=== PATIENT | female | born 1935 | race Caucasian/White ===

== ENCOUNTER 2020-01-26 07:07 | Inpatient (IN) | payer MEDICARE, SELFPAY ==
[2020-01-26] MEDS ORDERED: Ondansetron PF 4 MG/2 ML Vial ONE (07:54)
[2020-01-26] MEDS ORDERED: Morphine 4 MG/ML VIAL ONE (07:54)
[2020-01-26 08:05] LABS: #Eosinphils 0.9 thou/uL (0.0-0.7); #Monocytes 0.8 thou/uL (0.11-0.59); #Neutrophils 4.6 thou/uL (1.40-6.50); %Basophils 0.5 % (0.0-1.0); %Eosinophils 10.4 % (0.0-10.0); %Lymphocytes 24.1 % (21.0-51.0); %Monocytes 9.7 % (0.0-10.0); %Neutrophils 55.3 % (42.0-75.0); Hemoglobin 10.5 g/dL (12.0-16.0); Mean Corpuscular Hemoglobin 34.6 pg (27.0-31.0); Mean Platelet Volume 7.9 fL (7.4-10.4); Platelet Count 259 thou/uL (130-400); Red Blood Cell (RBC) Count 3.05 mill/uL (4.20-5.40); White Blood Cell (WBC) Count 8.3 thou/uL (4.8-10.8)
--- NOTE | 2020-01-26 08:09 | RAD ---
XR Chest 1 View Portable History: Chest pain Comparison: None. Findings: Left upper quadrant surgical clips of the abdomen. Dual-lead pacer electrode tips project o varun the right atrium and right ventricle. Prominent right hemithorax skinfold. No confluent airspace consolidation, pneumothorax or effusion. Left cardiophrenic fat pad. Mild cardiomegaly. Calcification projects over the right axilla. Impression: Chronic findings. No acute intrathoracic abnormality.
[2020-01-26 08:22] LABS: ALT (SGPT) 97 U/L (8-55); AST (SGOT) 109 U/L (5-34); Albumin 3.6 g/dL (3.4-4.8); Alkaline Phosphatase 190 U/L (40-110); Anion Gap 16 mmol/L (10-20); BUN (Urea Nitrogen) 19 mg/dL (9.8-20.1); Bilirubin, Total 0.5 mg/dL (0.2-1.2); Calc. Creatinine Clearance 0 mL/min (70-130); Calcium 8.2 mg/dL (7.8-10.44); Carbon Dioxide 19 mmol/L (23-31); Chloride 107 mmol/L (98-107); Globulin 3.2 g/dL (2.4-3.5); Glucose 87 mg/dL (83-110); Lipase 26 U/L (8-78); Potassium 4.2 mmol/L (3.5-5.1); Protein, Total 6.8 g/dL (6.0-8.3); Sodium 138 mmol/L (136-145)
[2020-01-26] MEDS ORDERED: Iopamidol-370 76% 500 ML 1 ML ONE (09:02)
[2020-01-26] MEDS ORDERED: Fentanyl 100 MCG/2 ML VIAL ONE (09:30)
--- NOTE | 2020-01-26 10:04 | CT ---
CT OF CHEST AND ABDOMEN AND PELVIS AND THORACIC AND LUMBAR SPINE PERFORMED WITH CONTRAST ENHANCEMENT: HISTORY: The patient fell in the middle of the night landing on toilet with full weight. Diffuse pain. COMPARISON: None available. FINDINGS: The lungs show some chronic-appearing change. There is no infiltrative process or evidence of pneumo thorax or pleural effusion. There is subtle deformity to the left posterolateral 11th rib which appe ars to represent a nondisplaced fracture. It is difficult to show any other definitive fractures. The thoracic aorta shows mildly aneurysmal appearance to the descending thoracic aorta which measures in the 3.6 cm range. No mediastinal hematoma. CT OF ABDOMEN PERFORMED WITH CONTRAST ENHANCEMENT: The liver and spleen show no focal abnormalities. The pancreas is atrophic. The gallbladder is mild ly distended. The right adrenal gland is normal. Severe cortical scarring involving the right kidney. No signs of any injury to either kidney. No signs of any bowel injury or free fluid. Atherosclerotic change of the aorta is present. The more proximal aorta measures in the 3.2 cm range. The infrarenal aorta i s ectatic but not aneurysmal. CT OF PELVIS PERFORMED WITH CONTRAST ENHANCEMENT: No adenopathy, mass, or free fluid. No evidence of any fracture of the bony pelvic ring. CT OF THORACIC SPINE: Kyphotic deformity to the spine is noted. I do not see any definite signs of an acute compression in jury. CT OF LUMBAR SPINE PERFORMED WITH CONTRAST ENHANCEMENT: Postoperative changes of the spine are seen. No acute findings. IMPRESSION: 1. Left posterior 11th and 12th rib fractures. Equivocal findings at the level of the posterior lef t 9th and 10th ribs. 2. Postoperative changes in the region of the stomach and post cholecystectomy change. 3. 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 4. Severe cortical scarring involving the right kidney. Atrophic-appearing pancreas. POS: Blake
[2020-01-26 11:22] LABS: Bilirubin Negative (Negative); Blood, Urine 3+ (Negative); Clarity Clear (Clear); Glucose, Urine (Dipstick) Normal (Negative); Ketone, Urine Negative (Negative); Leukocyte 250 Leu/uL (Negative); Nitrite Negative (Negative); Protein, Urine (Dipstick) 20 mg/dL (Neg-Trace); Squamous Epithelial 0-3 HPF (0-3); Transitional Epithelial 0-3 HPF (None Seen); Urobilinogen Normal mg/dL (Less than 2)
[2020-01-26 11:27] LABS: Magnesium 2.1 mg/dL (1.6-2.6); Phosphorus 3.9 mg/dL (2.3-4.7)
[2020-01-26 11:36] LABS: Specific Gravity, Urine Greater than 1.060 (1.002-1.036)
[2020-01-26 11:37] LABS: Bacteria/HPF 1+ HPF (None Seen); RBC/HPF 21-50 HPF (0-3)
[2020-01-26] MEDS ORDERED: Ondansetron PF 4 MG/2 ML Vial IVP PRN (11:45)
[2020-01-26] MEDS ORDERED: Dextrose 50% Abboject 50 ML SYRINGE SLOW IVP PRN (11:45)
[2020-01-26] MEDS ORDERED: Dextrose 5% in Water 1,000 ML IV PRN (11:45)
[2020-01-26] MEDS ORDERED: hydrALAZINE 20 MG/ML VIAL SLOW IVP PRN (11:45)
[2020-01-26] MEDS ORDERED: traMADol HCl 50 MG TAB PO PRN (11:47)
[2020-01-26] MEDS ORDERED: Ciprofloxacin 500 MG TAB PO SCH (12:00)
[2020-01-26] MEDS: Acetaminophen 325 MG TAB PO SCH ×3 (12:56→23:45)
[2020-01-26] MEDS: Ibuprofen 600 MG TAB PO SCH ×2 (12:57→21:27)
--- NOTE | 2020-01-26 14:58 | HP ---
TRAUMA SURGEON: Dr. Mayer. CONSULTING PHYSICIAN: None. HISTORY OF PRESENT ILLNESS: The patient is an 84-year-old female, who presents to the emergency department after she had a mechanical fall in her motel room. The patient reports that she slipped and fell in the bathroom, hitting her left posterior chest on the bathtub sidewall when she fell. She denies loss of consciousness, syncope, or anticoagulation use. She reports after she fell, she got up and went back to sleep, but woke up in the morning with more significant pain. She denies shortness of breath, chest pain, abdominal pain, nausea, vomiting, or diarrhea. She denies cough as well. PAST MEDICAL HISTORY: COPD, [place] x2, breast cancer, pacemaker, hiatal hernia, hypertension, cardiac stents x2. PAST SURGICAL HISTORY: Right-sided mastectomy, back surgeries x2, previous hiatal hernia repair. ALLERGIES: PENICILLIN, SULFA DRUGS, AND TETRACYCLINE. MEDICATIONS: The patient reports she takes nebs and Cymbalta. She takes additional medications, but she cannot remember them. Her family is to bring her medications and nursing will update the med rec. SOCIAL HISTORY: The patient is retired. She lives at home with her family. She does not use any walkers or assistive devices to get around. She denies tobacco use, but states that her was a heavy smoker. Denies drug or alcohol use. PHYSICAL EXAMINATION: VITAL SIGNS: Temperature 98.8, pulse 62, respirations 20, oxygen saturation 98% on 2 L nasal cannula, and blood pressure 159/66. PRIMARY SURVEY: Airway intact. Adequate breath sounds bilaterally. 2+ pulses in bilateral radials, femorals, and DPs. GCS 15. Gross motor and sensation are intact. No laceration, bruising, or external bleeding. SECONDARY SURVEY: HEAD: Normocephalic. No gross palpable skull deformities or tenderness. EYES: Pupils 3-2, equal, round, reactive to light bilaterally. ENT: No signs of trauma. C-SPINE: No step-offs or deformities. Nontender. C-collar not in place. ABDOMEN: Soft, nontender, nondistended. PELVIS: Stable to palpation. Nontender. No abrasions or ecchymosis noted. RECTAL: Deferred. GENITOURINARY: Deferred. EXTREMITIES: No gross deformities. No abrasions or ecchymosis noted. 2+ pulses in bilateral radials, femorals, and DPs. BACK/SPINE: No step-offs, deformities, or tenderness to palpation of thoracic or lumbar spine. No abrasions or ecchymosis noted. The patient has some left-sided back/chest wall tenderness on palpation. 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 Gross normal sensation x4 extremities. LABORATORY FINDINGS: White count 8.3, hemoglobin 10.5, hematocrit 31.0, and platelets 259. Sodium 138, potassium 4.2, chloride 107, bicarb 19, BUN 19, creatinine 0.95, glucose 87, phosphorus 3.9, and magnesium 2.1. UA demonstrates positive for bacteria, leukocyte esterase, and small amount of blood. DIAGNOSTIC FINDINGS: Chest x-ray demonstrates chronic findings. No acute intrathoracic abnormalities. CT scan of the chest, abdomen, and pelvis demonstrates left posterior 11th and 12th rib fractures. Equivocal findings at the level of posterior left 9th and 10th rib fractures. Postoperative changes in the region of the stomach and postcholecystectomy changes. Some mild aneurysm dilation of the descending thoracic aorta at approximately 3.6 cm. Severe cortical scarring involving the right kidney, atrophic-appearing pancreas. ASSESSMENT: 1. Status post mechanical fall from standing. 2. Left ribs 9 through 12 fractures. 3. Acute traumatic pain. 4. Urinary tract infection, uncomplicated. PLAN: The patient is admitted for observation to the Trauma Service. She is on the regular surgical nursing floor. She will receive scheduled and p.r.n. pain medications. Q.1 hour incentive spirometry. We will place back on her nebs 4 times a day with additional p.r.n. When her med rec is completed, we will start medications as clinically indicated. Physical and Occupational Therapy to work with the patient. The patient currently on 2 L nasal cannula oxygen with a history of COPD, however, she does not use any oxygen at home. This patient was discussed with Dr. Mayer before this dictation. Job ID: [id number]
[2020-01-26] MEDS ORDERED: Gabapentin 100 MG CAP PO SCH (15:00)
[2020-01-26] MEDS: Cyclobenzaprine 10 MG TAB PO PRN (15:01)
[2020-01-26] MEDS: traMADol HCl 50 MG TAB PO PRN ×2 (15:01→23:49)
[2020-01-26 17:17] VITALS: BMI 26.4
[2020-01-26] MEDS: Pregabalin 50 MG CAP PO SCH (20:25)
[2020-01-26] MEDS: Senokot S 8.6-50 MG TAB PO SCH (20:25)
[2020-01-26] MEDS: Ciprofloxacin 500 MG TAB PO SCH (20:26)
[2020-01-26] MEDS: Morphine 2 MG/ML VIAL SLOW IVP PRN (20:26)
[2020-01-26] MEDS ORDERED: Famotidine/PF 20 mg/2ml Vial SLOW IVP SCH (21:00)
[2020-01-27 05:28] LABS: SARS-CoV-2 MS2 Positive; SARS-CoV-2 N Gene Negative; SARS-CoV-2 S Gene Negative; SARS-CoV-2 by NAA Not Detected (NotDetected); SARS-CoV-2 orf1ab Negative
[2020-01-27 05:32] LABS: #Basophils 0.1 thou/uL (0.0-0.2); #Eosinphils 0.9 thou/uL (0.0-0.7); #Lymphocytes 2.1 thou/uL (1.20-3.40); #Monocytes 0.8 thou/uL (0.11-0.59); #Neutrophils 3.9 thou/uL (1.40-6.50); %Basophils 0.7 % (0.0-1.0); %Eosinophils 10.9 % (0.0-10.0); %Lymphocytes 27.2 % (21.0-51.0); %Monocytes 10.7 % (0.0-10.0); %Neutrophils 50.5 % (42.0-75.0); Hemoglobin 9.9 g/dL (12.0-16.0); Mean Corpuscular HGB CONC 32.6 g/dL (32.0-36.0); Mean Platelet Volume 7.3 fL (7.4-10.4); Platelet Count 249 thou/uL (130-400); RBC Distribution Width 12.7 % (11.5-14.5); Red Blood Cell (RBC) Count 3.01 mill/uL (4.20-5.40); White Blood Cell (WBC) Count 7.8 thou/uL (4.8-10.8)
[2020-01-27 05:52] LABS: Anion Gap 13 mmol/L (10-20); BUN (Urea Nitrogen) 13 mg/dL (9.8-20.1); Calc. Creatinine Clearance 44 mL/min (70-130); Calcium 8.4 mg/dL (7.8-10.44); Carbon Dioxide 25 mmol/L (23-31); Chloride 105 mmol/L (98-107); Glucose 94 mg/dL (83-110); Magnesium 1.9 mg/dL (1.6-2.6); Sodium 139 mmol/L (136-145)
[2020-01-27] MEDS: Acetaminophen 325 MG TAB PO SCH ×4 (06:35→23:08)
[2020-01-27] MEDS: traMADol HCl 50 MG TAB PO PRN (06:35)
[2020-01-27] MEDS: Ciprofloxacin 500 MG TAB PO SCH ×2 (06:36→20:20)
[2020-01-27] MEDS: Ibuprofen 600 MG TAB PO SCH ×2 (06:36→14:58)
--- NOTE | 2020-01-27 08:08 | RAD ---
XR Chest 1 View Portable History: Chest pain Comparison: CT prior day Findings: Nondisplaced subtle fracture is not well-defined. Prominent left hemithorax skinfold. Lungs are without confluent airspace consolidation. Impression: Nonvisualization of the nondisplaced left rib fractures.
[2020-01-27] MEDS: Senokot S 8.6-50 MG TAB PO SCH ×2 (09:16→20:19)
[2020-01-27] MEDS: Atorvastatin Calcium 20 MG TAB PO SCH (09:16)
[2020-01-27] MEDS: Amlodipine 10 MG TAB PO SCH (09:16)
[2020-01-27] MEDS: Metoprolol Tartrate 25 MG TAB PO SCH (09:17)
[2020-01-27] MEDS: Cyclobenzaprine 10 MG TAB PO PRN ×2 (09:17→18:03)
[2020-01-27] MEDS: Pregabalin 50 MG CAP PO SCH ×2 (09:18→20:19)
[2020-01-27] MEDS: Polyethylene Glycol 3350 17 GM Packet PO SCH (09:18)
[2020-01-27] MEDS: Morphine 2 MG/ML VIAL SLOW IVP PRN ×2 (09:24→18:04)
[2020-01-27] MEDS: Acetaminophen/Codeine 30-300mg Tablet PO SCH ×2 (14:57→20:20)
--- NOTE | 2020-01-27 16:11 | PRG ---
DATE OF SERVICE: 01/27/2020 SUBJECTIVE: The patient was seen this morning during rounds. She was sitting up in bed with some mild distress. She reported she has left-sided chest wall pain. She has not really found relief with her current pain regimen. She is tolerating a diet. Working with incentive spirometer, but is having difficulties getting above 1000. Worked with physical therapy today, ambulating in the hallway and spent some time sitting up in a chair, still needing oxygen. OBJECTIVE: VITAL SIGNS: Temperature 97.9, pulse 63, respirations 16, oxygen saturation 100% on 2 L nasal cannula, blood pressure 139/74. GENERAL: Well-appearing elderly female, sitting up in bed with some mild distress. PULMONARY: Equal chest rise and fall. Clear breath sounds bilaterally. No signs of acute respiratory distress. CARDIAC: Regular rate and rhythm. GI: Abdomen is soft, nontender, nondistended. EXTREMITIES: 2+ pulses in all extremities. Gross motor and sensation intact. No significant swelling noted. NEURO: GCS is 15. LABORATORY FINDINGS: White count 7.8, hemoglobin 9.9, hematocrit 30.5, platelets 249. Sodium 139, potassium 4.2, chloride 105, bicarb 25, BUN 13, creatinine 0.93, glucose 94, phosphorus 4.0, magnesium 1.9. DIAGNOSTIC FINDINGS: Chest x-ray completed this morning demonstrates nonvisualization of the nondisplaced left rib fractures. ASSESSMENT: 1. Status post mechanical fall from standing. 2. Left ribs 9 through 12 fractures. 3. Urinary tract infection, culture still pending. 4. History of chronic obstructive pulmonary disease, myocardial infarction x2, cardiac stents, breast cancer, pacemaker, and hiatal hernia. PLAN: Continue current diet. Discontinue tramadol. Start Tylenol 3 one tablet q.6 hours and additional tablet q.6 hours p.r.n. for breakthrough pain. Also add Lidoderm patches to chest wall. Continue physical and occupational therapy. Once the patient's pain is well controlled and she is not requiring supplemental oxygen, she can be discharged to home. Job ID: [id number]
[2020-01-27] MEDS ORDERED: Enoxaparin Sodium 30 MG/0.3 ML SYRINGE SC SCH (21:00)
[2020-01-27] MEDS: Ibuprofen 200 MG TAB PO SCH (21:31)
[2020-01-27] MEDS: Acetaminophen/Codeine 30-300mg Tablet PO PRN (23:08)
[2020-01-28] MEDS: Acetaminophen/Codeine 30-300mg Tablet PO SCH ×4 (03:18→14:38)
[2020-01-28] MEDS: Cyclobenzaprine 10 MG TAB PO PRN ×2 (03:19→11:01)
[2020-01-28 05:26] LABS: #Eosinphils 0.8 thou/uL (0.0-0.7); #Monocytes 0.9 thou/uL (0.11-0.59); #Neutrophils 6.1 thou/uL (1.40-6.50); %Basophils 0.3 % (0.0-1.0); %Eosinophils 8.2 % (0.0-10.0); %Lymphocytes 19.9 % (21.0-51.0); %Monocytes 8.9 % (0.0-10.0); %Neutrophils 62.8 % (42.0-75.0); Mean Corpuscular HGB CONC 32.8 g/dL (32.0-36.0); Mean Platelet Volume 7.2 fL (7.4-10.4); Platelet Count 265 thou/uL (130-400); RBC Distribution Width 12.4 % (11.5-14.5); Red Blood Cell (RBC) Count 3.03 mill/uL (4.20-5.40); White Blood Cell (WBC) Count 9.8 thou/uL (4.8-10.8)
[2020-01-28] MEDS: Acetaminophen 325 MG TAB PO SCH (05:52)
[2020-01-28] MEDS: Ibuprofen 200 MG TAB PO SCH ×2 (05:53→14:36)
[2020-01-28] MEDS: Ciprofloxacin 500 MG TAB PO SCH (05:53)
[2020-01-28] MEDS ORDERED: Lidocaine 5% Patch TD SCH (09:00)
[2020-01-28] MEDS: Metoprolol Tartrate 25 MG TAB PO SCH (09:07)
[2020-01-28] MEDS: Senokot S 8.6-50 MG TAB PO SCH (09:07)
[2020-01-28] MEDS: Amlodipine 10 MG TAB PO SCH (09:09)
[2020-01-28] MEDS: Pregabalin 50 MG CAP PO SCH (09:09)
[2020-01-28] MEDS: Atorvastatin Calcium 20 MG TAB PO SCH (09:09)
[2020-01-28] MEDS: Polyethylene Glycol 3350 17 GM Packet PO SCH (09:10)
[2020-01-28] MEDS: Acetaminophen/Codeine 30-300mg Tablet PO PRN (11:00)
[2020-01-28 11:35] VITALS: BP 161/65; TEMP 97.8
[2020-01-28] MEDS ORDERED: Lidocaine Patch Removal TOP SCH (21:00)
--- NOTE | 2020-01-29 03:35 | DIS ---
DATE OF ADMISSION: 01/26/2020 DATE OF DISCHARGE: 01/28/2020 ADMITTING PHYSICIAN: Jay Mayer DO DISCHARGING PHYSICIAN: Jay Mayer DO ADMITTING DIAGNOSES: 1. Mechanical fall from standing. 2. Left rib fractures, 9 through 12. 3. Acute traumatic pain. 4. Urinary tract infection, uncomplicated. DISCHARGING DIAGNOSES: 1. Mechanical fall from standing. 2. Left rib fractures, 9 through 12. 3. Acute traumatic pain. 4. Urinary tract infection, uncomplicated. HOSPITAL COURSE: The patient was admitted through the emergency department to Trauma Service. The patient was evaluated and had no pneumothorax or effusion. She was placed on rib fracture protocol. She progressed well. She worked with PT and OT. The patient has spontaneously voided, tolerated diet, pain is under control and she was requesting discharge. She lives in [place]. She can follow up with the same PT, who recommends home with family . The patient is doing well with . Her vital signs remained stable, and she is ambulating on the exact date of discharge. PHYSICAL EXAMINATION: On day of discharge, VITAL SIGNS: Temperature is 97.8, blood pressure is 161/65, heart rate is 65, breathing 14 times per minute, and saturating 91% on room air. GENERAL: This is an 84-year-old female, sitting up, in no acute distress. HEENT: Normocephalic and atraumatic. RESPIRATORY: Equal rise and fall. Bilateral breath sounds clear. CARDIOVASCULAR: Regular rate and rhythm. ABDOMEN: Soft. PELVIS: Stable. NEUROLOGIC: GCS 15. EXTREMITIES: Moves extremities well. SKIN: Warm and dry. PSYCH: Normal mood and affect. LABORATORY DATA: White blood cell count 9.8, platelets are 265, hemoglobin and hematocrit are 10.0 and 30.5. Sodium is 139, potassium 4.0, chloride is 105, CO2 is 25, BUN is 13, creatinine 0.93, phos is 4.0, magnesium is 1.9. DISCHARGE MEDICATIONS: Going to be, 1. Tylenol No. 3 one every 6 hours as needed with #40. 2. Lidocaine patch 5% one patch daily, #20. 3. Zofran 4 mg every 6 hours as needed. 4. Lyrica 50 mg b.i.d. 5. Continue all other home medications. FOLLOWUP: Follow up with PCP for chest x-ray. This is demonstrated on the chart, given instructions for the same. She can return to the trauma clinic if she would like to. Answered all questions to the patient at bedside. Discharge plan is for home with family. She does have a safety plan. Coordinate with bedside RN. Job ID: [id number]
== END 2020-01-28 16:12 | disposition home or self-care (01) | DRG 184 ==
LOC: ERS 07:07 → OBSVTOIN 10:21 → SURG A 10:21
PROVIDERS: ADMIT Surgery; ATTEND Surgery
DX: S22.42XA Multiple fractures of ribs, left side, initial encounter for closed fracture (principal); N39.0 Urinary tract infection, site not specified; I10 Essential (primary) hypertension; W01.0XXA Fall on same level from slipping, tripping and stumbling without subsequent striking against object, initial encounter; J44.9 Chronic obstructive pulmonary disease, unspecified; Z90.11 Acquired absence of right breast and nipple; Z85.3 Personal history of malignant neoplasm of breast; Z88.0 Allergy status to penicillin; Z88.2 Allergy status to sulfonamides; Z88.8 Allergy status to other drugs, medicaments and biological substances; Z79.899 Other long term (current) drug therapy; Z95.0 Presence of cardiac pacemaker; Z98.890 Other specified postprocedural states; I25.2 Old myocardial infarction; Z95.5 Presence of coronary angioplasty implant and graft; Z20.828 Contact with and (suspected) exposure to other viral communicable diseases
CPT/HCPCS: 36415; 51701; 71045; 71260; 74177; 80048; 80053; 81003; 81015; 83690; 83735; 84100; 84484; 85025; 87086; 87635; 90471; 90732; 93005; 94640; 96374; 96375; 96376; G0009; G0378; G0390; J1650; J2270; J2405; J3010; J7620; Q9967; U0003